=== PATIENT | female | born 1980 ===

== ENCOUNTER 2024-05-30 07:20 | Outpatient (AMB) | payer OTHER, SELFPAY ==
--- NOTE | 2024-05-30 07:30 | MHC.OFFVIS ---
Vital Signs 05/30/24 07:51 Height 5 ft 6 in Weight 175 lb 7.807 oz BMI 28.3 BP 112/60 Blood Pressure Location Lt brachial Position Sitting Pulse 74 Pulse Source Pulse Oximeter Pulse Oximetry (%) 90 L Oxygen Delivery Method Room Air Intake Visit Reasons: Joint Pain Intake Note: Patient presents for joint pain. 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 Last office visit for adult Medicine in [place] by Leslie Brooks PA-C reviewed. Patient sent here for evaluation of joint pain and history of positive rheumatoid factor. She states that she has been having joint pains for the past 4 years. Was evaluated in 2020 at that time was found to have elevated rheumatoid factor and was sent to a [facility] in [place]. Patient states that she was started on methotrexate, folic acid and another medication which she can not recall. However had to stop methotrexate because it affected her liver enzymes. No formal diagnosis was discussed with her. She has been off medication for over a year. Of note she had developed hypothyroidism during her last but then was told that she was back to normal . During 2020 when she was being evaluated for joint pain she was found to have deranged TSH and recently started levothyroxine. Reports prolonged morning stiffness Denies rashes, photosensitivity, alopecia, oral/nasal ulcers, sicca symptoms, lymphadenopathy, chest pain/shortness of breath, foamy urine, lower extremity edema, muscle weakness, Raynaud's Also denies history of seizure, CVA, psychosis, history of kidney problems, history of cytopenias, history of VTE Sister - Lupus Obstetric history: . No hx of preeclampsia or miscarriages No history of DVT or PE [facility] Medical History (Updated 05/30/24 @ 09:45 by Radha Johnston MD) On prednisone therapy Inflammatory arthritis Family History (Updated 05/30/24 @ 08:12 by Radha Johnston MD) Mother Arthritis Thyroid disease Sister Lupus (systemic lupus erythematosus) Social History (Updated 05/30/24 @ 07:51 by BIJAL Sears) Household Members: Family Housing: Apartment Alcohol intake: former Patient Tobacco Use Status: Former Tobacco user Tobacco use type: Cigarette Cigarette Packs Per Day: 0.5 Years Smoked: 20 years Review of Systems Const Details: Review of Systems Constitutional: Denies fever, chills, weight loss ENT: Denies vision changes, eye pain or eye redness, dental caries, dry mouth GI: Denies nausea, vomiting, diarrhea, abdominal pain, change in BM Pulm: Denies SOB, BLACK, hemoptysis, wheezing Cards: Denies chest pain, palpitations Skin: Denies Raynaud's, rash, nail changes, photosensitivity, [employer]IGENCE AGENT: Denies headaches, weakness, paresthesias, recurrent falls MSK: as per HPI All other systems reviewed and are unremarkable except noted above Physical Exam Vital Signs: Last Vital Signs Pulse 74 05/30/24 07:51 BP 112/60 05/30/24 07:51 Pulse Ox 90 L 05/30/24 07:51 Oxygen Delivery Method Room Air 05/30/24 07:51 BMI result Body Mass Index 28.3 Const Other: Physical Examination Patient well appearing and in no apparent painful distress Able to rise from chair without support. ?Gait normal. Constitutional Mucous membranes pink and moist patient alert and cooperative HEENT Conjunctiva and sclera clear. ?Pupils equal round and reactive to light. ?No lymphadenopathy. ?Normal dentition. Respiratory System Normal respiratory effort and able to speak in complete sentences. ?Clear to auscultation bilaterally. ?No crackles, rales, rhonchi, wheezes heard. Cardiac System Regular rate and rhythm. ?S1 and S2 heard no murmurs. ?Radial pulses intact bilaterally MSK No deformity, swelling, abnormalities noted to bilateral hands. ?Tenderness to palpation of the PIPs, with mild tenderness to palpation of the MCPs. No other joints involved.. ?Able to move all joints with full range of motion, without limitation. Normal Rylie's test. 10 -> 16cm Skin Results Reviewed Results Reviewed: Results 12/07/2023 from [facility] reviewed. TSH 5.6, RF 218. Normal creatinine and normal AST/ALT Assessment & Plan Assessment & Plan (1) Inflammatory arthritis: Code(s): M19.90 - Unspecified osteoarthritis, unspecified site Category: Medical Plan: #Inflammatory Arthritis Patient with evidence of PIP TTP throughout hands. Some mild MCP TTP It is concerning that her RF is elevated but this can have many causes including Autoimmune diseases:?Rheumatoid arthritis, Sjogren syndrome, mixed connective tissue disease, systemic lupus erythematosus (SLE); Chronic infections: hepatitis C, tuberculosis, and endocarditis; Cancer:?leukemia and primary sclerosing cholangitis; Inflammatory lung diseases:?sarcoidosis, Smoking. Will check labs and XRs Start prednisone 5mg until definitive diagnosis can be made (2) On prednisone therapy: Code(s): Z79.52 - long term care pharmacist (current) use of systemic steroids Category: Medical Plan: #Long-term Use of Steroids Discussed with patient the risks and benefits of steroid for managing the rheumatic condition Benefits include: - Reduced pain, improved mobility, increased participation in activities, and decreased progression of disease Risks include: - GI upset, potential ultrasound worsening or formation (especially in patients > 65 years old), elevated blood pressure/worsening hypertension, elevated blood sugar/worsening diabetes control, worsening of bone density, elevated lipids/worsening triglycerides, cataract formation, weight gain Recommended using proton pump inhibitors (PPIs) for the duration of steroid use to reduce the risk of gastric ulcers and vitamin-D daily to reduce the risk of osteoporosis Labs checked: ?A1c, T spot, hepatitis-B and C serologies Pneumocystis jiroveci prophylaxis: ?Patient with risk factors including steroids greater than 50 mg for more than 30 days, age greater than 60 years, and lung involvement from underlying rheumatic disease requires prophylaxis and will be given so Plan I spent 45 minutes reviewing the record and labs, seeing the patient, discussing the treatment plan and documenting in the medical record Orders: Orders Beta-2 Glycoprotein Antibody Today - Unspecified osteoarthritis, unspecified site CATHERINE Reflex Titer and Pattern Today - Unspecified osteoarthritis, unspecified site Anti Extractable Nuclear Ag Today - Unspecified osteoarthritis, unspecified site Complement C3 Today - Unspecified osteoarthritis, unspecified site Complement C4 Today - Unspecified osteoarthritis, unspecified site C Reactive Protein Today - Unspecified osteoarthritis, unspecified site DNA Double Stranded-Crithidia Today - Unspecified osteoarthritis, unspecified site Erythrocyte Sedimentation Rate Today - Unspecified osteoarthritis, unspecified site Complete Blood Count Auto Diff Today - Unspecified osteoarthritis, unspecified site Comprehensive Met. Panel Today - Unspecified osteoarthritis, unspecified site Hepatitis A,B,C Profile Today - Unspecified osteoarthritis, unspecified site Cyclic Citrullinated Peptide Today - Unspecified osteoarthritis, unspecified site Rheumatoid Factor Today - Unspecified osteoarthritis, unspecified site XR hand wrist RT Today - Unspecified osteoarthritis, unspecified site XR foot LT min 3V Today - Unspecified osteoarthritis, unspecified site XR foot RT min 3V Today - Unspecified osteoarthritis, unspecified site XR chest 2V Today D86.9 - Sarcoidosis, unspecified Angiotensin Converting Enzyme Today D86.9 - Sarcoidosis, unspecified Cardiolipin Antibodies Today - Unspecified osteoarthritis, unspecified site Lupus Anticoagulant Panel Today - Unspecified osteoarthritis, unspecified site Anti DNA DS Antibody Today - Unspecified osteoarthritis, unspecified site Protein Creatinine Ratio, Ur Today - Unspecified osteoarthritis, unspecified site UA w Microscopic Today - Unspecified osteoarthritis, unspecified site Free T4 (Free Thyroxine) Today - Unspecified osteoarthritis, unspecified site Vitamin D 25-OH (D2 and D3) Today - Unspecified osteoarthritis, unspecified site Thyroid Stimulating Hormone Today - Unspecified osteoarthritis, unspecified site Thyroglobulin Antibodies Today - Unspecified osteoarthritis, unspecified site Thyroid Peroxidase Antibodies Today - Unspecified osteoarthritis, unspecified site XR hand wrist LT Today - Unspecified osteoarthritis, unspecified site Medications: New prednisone see taper instructions 5 mg PO DIRECTED 6 weeks 42 tabs 0RF - Unspecified osteoarthritis, unspecified site cholecalciferol (vitamin D3) 1,250 mcg PO QWEEK Coding Level of Care Code New Pt Level 4 (90973) Diagnoses Inflammatory arthritis On prednisone therapy Z79.52
[2024-05-30 07:51] VITALS: BP 112/60; PULSE 74; O2SAT 90; BMI 28.3
== END 2024-05-30 08:30 | disposition home or self-care (01) ==
PROVIDERS: PCP Physician Assistant Medical; Visit Provider Student in an Organized Health Care Education/Training Program
DX: M19.90 Unspecified osteoarthritis, unspecified site (principal); Z79.52 Long term (current) use of systemic steroids
CPT/HCPCS: 99204

== ENCOUNTER → 2024-05-30 07:20 | Outpatient (BNVA) | payer OTHER, SELFPAY | PROVIDERS: Visit Provider Student in an Organized Health Care Education/Training Program ==